=== PATIENT | male | born 1980 | race Caucasian/White ===

== ENCOUNTER 2024-06-19 11:21 | Emergency (ER) | payer MEDICAID ==
[2024-06-19] MEDS ORDERED: traMADol 50 MG Tab PO ONE (11:22)
[2024-06-19] MEDS ORDERED: Ciprofloxacin 500 MG Tab PO ONE (11:22)
[2024-06-19] MEDS ORDERED: Sodium Chloride 0.9% 10 ML Syringe FLUSH PRN (11:44)
[2024-06-19] MEDS ORDERED: Naloxone 0.4 MG/ML SDV IVPUSH PRN (11:46)
[2024-06-19 11:55] LABS: HEMOGLOBIN 15.1 g/dL (12.9-17.7); MEAN CORPUSCULAR HEMOGLOBIN 29.8 pg (27.0-33.3); MEAN CORPUSCULAR HGB CONC 34.3 g/dL (28.7-35.3); MEAN CORPUSCULAR VOLUME 86.9 fL (80.8-98.7); MEAN PLATELET VOLUME 6.8 fL (6.7-11.0); PLATELET COUNT,PLT 342 x10(3)uL (117-477); RED BLOOD CELL COUNT 5.07 x10(6)uL (3.90-5.90); RED CELL DISTRIBUTION WIDTH 13.4 % (12.4-15.0); WHITE BLOOD CELL COUNT,WBC 18.7 x10-3/uL (3.2-10.1)
[2024-06-19 11:56] LABS: BLOOD UREA NITROGEN,BUN 12 mg/dL (7-18); CALCIUM 8.5 mg/dL (8.6-10.2); CARBON DIOXIDE,CO2 29 mmol/L (21-32); CHLORIDE,CL 99 mmol/L (100-110); CREATININE 1.2 mg/dL (0.70-1.30); EST CRCL DRUG DOSING (CG) 81.11 mL/min; ESTIMATED GFR 76 mL/min (>60); GLUCOSE RANDOM 104 mg/dL (80-116); POTASSIUM,K 4.4 mmol/L (3.5-5.3); SODIUM,NA 136 mmol/L (135-145)
[2024-06-19] MEDS: fentaNYL 100 MCG/2 ML SDV IVPUSH ONE (11:59)
[2024-06-19] MEDS: cefTRIAXone 500 MG Vial IM ONE (11:59)
[2024-06-19] MEDS: Sodium Chloride 0.9% 1,000 ML IV ONE (12:20)
[2024-06-19 12:24] LABS: LYMPHOCYTES PERCENT MAN 12 % (13-37); MONOCYTES PERCENT MAN 7 % (4-12); SEG NEUTROPHILS PERCENT MAN 81 % (46-82)
[2024-06-19] MEDS: cefTRIAXone 500 MG Vial ONE (12:26)
[2024-06-19 14:53] LABS: HEMATOCRIT 40.5 % (38.3-50.1); HEMOGLOBIN 13.8 g/dL (12.9-17.7); MEAN CORPUSCULAR HEMOGLOBIN 29.7 pg (27.0-33.3); MEAN CORPUSCULAR HGB CONC 34.1 g/dL (28.7-35.3); MEAN CORPUSCULAR VOLUME 87.2 fL (80.8-98.7); MEAN PLATELET VOLUME 6.6 fL (6.7-11.0); PLATELET COUNT,PLT 302 x10(3)uL (117-477); RED BLOOD CELL COUNT 4.65 x10(6)uL (3.90-5.90); RED CELL DISTRIBUTION WIDTH 13.3 % (12.4-15.0); WHITE BLOOD CELL COUNT,WBC 17.6 x10-3/uL (3.2-10.1)
[2024-06-19 15:03] LABS: EOSINOPHILS PERCENT MAN 1 % (0-5); LYMPHOCYTES PERCENT MAN 10 % (13-37); MONOCYTES PERCENT MAN 6 % (4-12); SEG NEUTROPHILS PERCENT MAN 83 % (46-82)
[2024-06-19 16:42] LABS: APPEARANCE,URINE CLOUDY (CLEAR); BILIRUBIN,URINE NEGATIVE (NEGATIVE); COLOR,URINE YELLOW (YELLOW); GLUCOSE,URINE NORMAL (NORMAL); KETONES,URINE NEGATIVE (NEGATIVE); LEUKOCYTE ESTERASE,URINE LARGE (NEGATIVE); NITRITE,URINE NEGATIVE (NEGATIVE); OCCULT BLOOD,URINE LARGE (NEGATIVE); PROTEIN,URINE 30 mg/dL (NEGATIVE); RBC,URINE PACKED (0-5); UROBILINOGEN,URINE NORMAL (NEGATIVE); WBC,URINE PACKED (0-5)
[2024-06-19 16:43] LABS: BACTERIA,URINE MANY (NS)
[2024-06-22 18:31] LABS: APTIMA MEDIA TYPE Urine; C. TRACHOMATIS BY TMA Negative (Negative); N. GONORRHOEAE BY TMA Positive (Negative); SPECIMEN SOURCE Urine
== END 2024-06-19 16:37 | disposition home or self-care (01) ==
LOC: FB.ED 11:21
DX: N45.1 Epididymitis (principal)
CPT/HCPCS: 36415; 80048; 81001; 83605; 85025; 86140; 87491; 87591; 96372; 96374; 99284-25; A9270-GY; J0696; J3010; J7030